=== PATIENT | female | born 1970 | race Caucasian/White ===

== ENCOUNTER 2016-09-16 21:54 | Emergency (ER) | payer OTHER ==
[~2016-09-16] VITALS: Wt 70.0 kg
[2016-09-16] MEDS ORDERED: IBUP-1542 PO (23:14)
--- NOTE | 2016-09-16 23:29 | ERD ---
ER Documentation Chief Complaint Date/Time DATE: 09/16/16 TIME: 23:21 Chief Complaint LEFT FOOT SWELLING S/P FALL FROM STAIRS +SWELLING + CMS DISTALLY HPI 46-year-old female is complaining of left foot pain. Patient stated that she tripped and fell when going up 2 steps of stairs earlier this morning. She landed on her hands and twisted her left foot. She did not remember how she twisted her foot. She was able to stand and bear weight immediately after the fall. However, after some rest, she noticed swelling in the lateral aspect the left foot, and have trouble walking. Patient has breast cancer, undergone mastectomy 2 weeks ago. She is currently taking Xarelto. Denies hitting her head in the fall. Denies any other injuries. ROS All systems reviewed and are negative except as per history of present illness. 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 09/16/16 Allergies Allergies: Coded Allergies: No Known Allergy (Unverified , 09/16/16) PMhx/Soc Breast cancer Medical and Surgical Hx: pt denies Medical Hx Anesthesia Reaction: No Hx Neurological Disorder: No Hx Respiratory Disorders: No Hx Cardiac Disorders: No Hx Psychiatric Problems: No Hx Miscellaneous Medical Probl: Yes (BLOOD CLOTS) Hx Alcohol Use: No Hx Substance Use: No Hx Tobacco Use: No Smoking Status: Unknown if ever smoked Physical Exam Vitals Vital Signs Date Time Temp Pulse Resp B/P Pulse Ox O2 Delivery O2 Flow Rate FiO2 09/16/16 22:00 98.8 85 18 149/76 97 Physical Exam General: Patient is well-developed. Awake, alert, and conversant, in no apparent distress Skin: Warm and dry Head: Normocephalic, atraumatic without palpable deformities Eyes: Pupils equal, round, and reactive to light. Extraocular movements intact. No periorbital ecchymosis or step-off Neck: No midline point tenderness, step-off, or deformity to firm palpation of posterior cervical spine. Trachea midline. Carotids equal. No masses. No JVD. Full range of motion of the neck without limitation or pain Chest: No surface trauma. Nontender without crepitus or deformity. No palpable subcutaneous air. Lungs have good tidal volume, lungs clear to auscultate bilaterally Heart: Regular rate and rhythm. No murmur, rub, or gallop Extremities: No surface trauma. Slightly limited range of motion of the left ankle due to pain. No bilateral malleoli tenderness. No navicular or fifth metatarsal tenderness. Tenderness at the anterior talofibular ligament to good strength in all extremities. Sensation to light touch intact. All peripheral pulses are intact and equal Neuro: Alert and oriented 4, GCS 15, cranial nerves II through XII intact. Motor and sensory exam is nonfocal. Reflexes are symmetric Procedures/MDM Well-appearing 46-year-old female presents to the ED with left ankle pain after a fall. She is [place] Ankle's Rule negative, I doubt she has ankle fractures or dislocations. Likely patient sustained a ankle sprain. The area of injury was immobilized with an Mike wrap. Patient was noted to be comfortable and neurovascularly intact both before and after the immobilization. Patient also given crutches for ambulation. Patient has recent history of clotting disorder secondary to breast cancer. She is currently taking anticoagulant. She did not have any sign of expanding hematoma. Patient also given crutches for ambulation. Patient appears well, stable for discharge and outpatient management. Medical decision making shared with patient and family. Education provided to patient and family. Patient and family expressed understanding of the plan. Medications on discharge: Ibuprofen. Follow-up: Primary care provider in 2-3 days or return to ED if worse. Departure Diagnosis: Primary Impression: Left ankle sprain Encounter type: initial encounter Involved ligament of ankle: tibiofibular ligament Qualified Code: S93.432A - Sprain of tibiofibular ligament of left ankle, initial encounter Condition: Stable Patient Instructions: Treating Ankle Sprains Referrals: [facility] YOU HAVE RECEIVED A MEDICAL SCREENING EXAM AND THE RESULTS INDICATE THAT YOU DO NOT HAVE A CONDITION THAT REQUIRES URGENT TREATMENT IN THE EMERGENCY DEPARTMENT. FURTHER EVALUATION AND TREATMENT OF YOUR CONDITION CAN WAIT UNTIL YOU ARE SEEN IN YOUR DOCTORS OFFICE WITHIN THE NEXT 1-2 DAYS. IT IS YOUR RESPONSIBILITY TO MAKE AN APPOINTMENT FOR FOLOW-UP CARE. IF YOU HAVE A PRIMARY DOCTOR --you should call your primary doctor and schedule an appointment IF YOU DO NOT HAVE A PRIMARY DOCTOR YOU CAN CALL OUR PHYSICIAN REFERRAL HOTLINE AT IF YOU CAN NOT AFFORD TO SEE A PHYSICIAN YOU CAN CHOSE FROM THE FOLLOWING [facility] [address] [facility] [address] [facility] [address] [facility] [facility] [facility] [address] [facility] [phone] [facility]. [facility] [address] Additional Instructions: Call your primary care doctor TOMORROW for an appointment during the next 2-3 days.See the doctor sooner or return here if your condition worsens before your appointment time. PILY MELLO NP Sep 16, 2016 23:29
== END 2016-09-16 23:50 | disposition home or self-care (01) ==
LOC: FTE 21:54
DX: S93.432A Sprain of tibiofibular ligament of left ankle, initial encounter (principal); W10.9XXA Fall (on) (from) unspecified stairs and steps, initial encounter; Y92.9 Unspecified place or not applicable
CPT/HCPCS: 99283